=== PATIENT | male | born 1995 | race Two or more races ===

== ENCOUNTER 2018-04-21 19:44 | Emergency (ER) | payer OTHER ==
[~2018-04-21] VITALS: Ht 172.7 cm; Wt 113.4 kg
[2018-04-21 21:07] VITALS: BP 106/63
[2018-04-21] MEDS ORDERED: CYCL10TA2 PO (21:13)
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
[2018-04-21] MEDS ORDERED: CYCLOBENZAPRINE 10 MG TABLET. PO ONE (21:15)
[2018-04-21] MEDS ORDERED: KETOROLAC 60 MG/2 ML INJ. IM ONE (21:15)
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
== END 2018-04-21 23:50 | disposition home or self-care (01) ==
LOC: ER 19:44
DX: S13.4XXA Sprain of ligaments of cervical spine, initial encounter (principal); M79.601 Pain in right arm; M54.5 Low back pain; Z88.0 Allergy status to penicillin; V43.52XA Car driver injured in collision with other type car in traffic accident, initial encounter; Y93.89 Activity, other specified; Y92.488 Other paved roadways as the place of occurrence of the external cause; Y99.8 Other external cause status
CPT/HCPCS: 72040; 72125; 73060; 73080; 96372; 99284; J1885